=== PATIENT | female | born 1985 | race Asian ===

== ENCOUNTER 2017-12-16 01:25 | Inpatient (IN) | payer SELFPAY ==
[~2017-12-16] VITALS: Ht 172.7 cm; Wt 82.6 kg
[2017-12-16] MEDS ORDERED: PROMETHAZINE 25 MG/ML VIAL IVP PRN (01:45)
[2017-12-16] MEDS ORDERED: OXYTOCIN 10 UNITS/ML VIAL IM SCH (01:45)
[2017-12-16] MEDS ORDERED: LACTATED RINGERS 500 ML IV ONE (01:45)
[2017-12-16] MEDS ORDERED: NALBUPHINE HYDROCHLORIDE 10 MG/ML VIAL IVP PRN (01:45)
[2017-12-16] MEDS ORDERED: MISOPROSTOL 25 MCG TAB VG PRN (01:50)
[2017-12-16] MEDS ORDERED: PREN-546 PO (02:49)
[2017-12-16 02:54] VITALS: BP 125/92
[2017-12-16 03:18] LABS: BASOPHILS % (AUTO) 0.3 % (0.0-2.0); EOSINOPHILS # (AUTO) 0.1 K/uL (0-0.4); EOSINOPHILS % (AUTO) 0.8 % (0.0-4.0); HEMOGLOBIN 12.3 g/dL (12.0-16.0); LYMPHOCYTES # (AUTO) 2.4 K/uL (2.5-16.5); LYMPHOCYTES % (AUTO) 20.4 % (20.5-51.1); MEAN CORPUSCULAR HEMOGLOBIN 30 pg (27-31); MEAN CORPUSCULAR HGB CONC 33 g/dL (33-37); MEAN CORPUSCULAR VOLUME 91 fL (80-94); MONOCYTES # (AUTO) 0.6 K/uL (0.8-1.0); MONOCYTES % (AUTO) 4.8 % (1.7-9.3); NEUTROPHILS # (AUTO) 8.8 K/uL (1.8-7.7); NEUTROPHILS % (AUTO) 73.7 % (42.2-75.2); PLATELET COUNT (AUTO) 214 K/uL (140-450); RED BLOOD CELL COUNT(AUTO) 4.09 MIL/uL (4.20-5.40); RED CELL DISTRIBUTION WIDTH 13.1 % (11.6-13.7); WHITE BLOOD COUNT (AUTO) 11.9 K/uL (4.8-10.8)
[2017-12-16 03:20] LABS: APPEARANCE,URINE SL CLOUDY (CLEAR); BILIRUBIN,URINE NEGATIVE (NEGATIVE); BLOOD, URINE NEGATIVE (NEGATIVE); COLOR,URINE YELLOW (YELLOW); LEUKOCYTE ESTERASE ,URINE NEGATIVE (NEGATIVE); NITRITE, URINE NEGATIVE (NEGATIVE); PH,URINE 7.5 (5.0-9.0); UGLUCOSE NEGATIVE (NEGATIVE)
[2017-12-16 04:26] LABS: ALBUMIN 2.9 g/dL (3.4-5.0); ANION GAP 15.9 (8-16); CARBON DIOXIDE 22.9 mmol/L (21-32); CREATININE 0.6 mg/dL (0.6-1.3); POTASSIUM 3.8 mmol/L (3.5-5.1); TOTAL BILIRUBIN 0.3 mg/dL (0.0-1.0)
[2017-12-16 04:28] LABS: RBC,URINE 0-5 (RARE) /HPF (0-5); WBC,URINE 0-5 (RARE) /HPF (0-5)
[2017-12-16 04:29] LABS: CALCIUM OXALATE CRYSTALS,UR 0-10 /HPF (None Seen)
[2017-12-16] MEDS: LACTATED RINGERS 1,000 ML IV SCH ×3 (06:10→18:06)
[2017-12-16] MEDS ORDERED: MISOPROSTOL 25 MCG TAB ONE (06:51)
--- NOTE | 2017-12-16 09:27 | NUR ---
PATIENT HAS BEEN SCREENED AND CATEGORIZED LOW NUTRITION RISK. PATIENT WILL BE SEEN WITHIN 7 DAYS OF ADMISSION. 12/22/[address]
[2017-12-16] MEDS ORDERED: OXYTOCIN 20 UNITS in LACTATED RINGERS 1,000 ML IV SCH (11:58)
[2017-12-17] MEDS: LACTATED RINGERS 1,000 ML IV SCH ×4 (02:01→21:52)
[2017-12-17] MEDS ORDERED: OXYTOCIN 10 UNITS/ML VIAL IM ONE (20:10)
[2017-12-17] MEDS ORDERED: BUPIVACAINE 0.125%/NS PREMIX 250 ML ONE (21:44)
[2017-12-17] MEDS ORDERED: BUPIVACAINE 0.125%/NS PREMIX 250 ML EPI SCH (22:30)
[2017-12-18] MEDS ORDERED: OXYTOCIN 10 UNITS/ML VIAL ONE (00:52)
[2017-12-18] MEDS ORDERED: TEMAZEPAM 15 MG CAP PO PRN (01:25)
[2017-12-18] MEDS ORDERED: oxyCODONE/APAP 5/325 MG 1 TAB TAB PO PRN (01:25)
[2017-12-18] MEDS ORDERED: METHYLERGONOVINE 0.2 MG/ML AMP IM PRN (01:25)
[2017-12-18] MEDS ORDERED: BENZOCAINE/MENTHOL 20%-0.5% 60 GM CAN TP PRN (01:25)
[2017-12-18] MEDS ORDERED: MEASLES, MUMPS, AND RUBELLA 1 VIAL SQVAC PRN (01:25)
[2017-12-18] MEDS ORDERED: OXYTOCIN 10 UNITS/ML VIAL IM PRN (01:25)
[2017-12-18] MEDS ORDERED: IBUPROFEN 800 MG TAB PO PRN (01:25)
[2017-12-18] MEDS: HYDROcodone/APAP 5/325 MG 1 TAB TAB PO PRN (19:51)
[2017-12-18] MEDS ORDERED: DOCUSATE SOD/SENNA 50/8.6 MG 1 TAB PO SCH (21:00)
[2017-12-19 06:21] LABS: HEMATOCRIT 30.6 % (36-48); HEMOGLOBIN 10.4 g/dL (12.0-16.0)
[2017-12-19] MEDS: HYDROcodone/APAP 5/325 MG 1 TAB TAB PO PRN (08:02)
== END 2017-12-19 20:10 | disposition home or self-care (01) | DRG 775 ==
LOC: MLD 01:25 → MFCC 12-18 07:47
PROVIDERS: ADMIT Obstetrics & Gynecology; ATTEND Obstetrics & Gynecology
PROC: 10E0XZZ Delivery of Products of Conception, External Approach (ICD-10-PCS; principal; 2017-12-16)
PROC: 0KQM0ZZ Repair Perineum Muscle, Open Approach (ICD-10-PCS; 2017-12-16)
PROC: 3E0S3BZ Introduction of Anesthetic Agent into Epidural Space, Percutaneous Approach (ICD-10-PCS; 2017-12-16)
PROC: 00HU33Z Insertion of Infusion Device into Spinal Canal, Percutaneous Approach (ICD-10-PCS; 2017-12-16)
DX: O69.1XX0 Labor and delivery complicated by cord around neck, with compression, not applicable or unspecified (principal); O70.1 Second degree perineal laceration during delivery; Z3A.40 40 weeks gestation of pregnancy; Z37.0 Single live birth
CPT/HCPCS: 36415; 51702; 59200; 59409; 80053; 81001; 85018; 85025; 86592; 86886; 86900; 86901; 87340; J2590; J3490; J7120